=== PATIENT | female | born 1965 ===

== ENCOUNTER 2017-01-23 14:49 | Emergency (ER) | payer BC, OTHER ==
[2017-01-23 15:13] VITALS: BP 124/80
--- NOTE | 2017-01-23 15:31 | UC ---
Skin Complaint HPI - HPI Summary HPI Summary: 51 yo female with a few day hx of pruritic rash below bra strap also has generalized pruritis has had 2 days of diarrhea 4x today was at [facility] - History of Current Complaint Chief Complaint: UCSkin Time Seen by Provider: 01/23/17 15:21 Stated Complaint: POSSIBLE SHINGLES? Hx Obtained From: Patient Hx Last Menstrual Period: take B/C continuously to prevent menses Onset/Duration: Gradual Onset, Lasting Days Timing: Constant Onset Severity: Mild Current Severity: Mild Pain Intensity: 0 Pain Scale Used: 0-10 Numeric Location: Other - slightly left of t-10 Character: Swelling, Pruritus, Redness, Raised Aggravating: Nothing Alleviating: Nothing Associated Signs & Symptoms: Positive: Rash - Allergy/Home Medications Allergies/Adverse Reactions: Allergies Allergy/AdvReac Type Severity Reaction Status Date / Time Sulfa Antibiotics Allergy Rash Verified 01/23/17 15:14 Erythromycin AdvReac Vomiting Verified 01/23/17 15:14 Home Medications: Home Medications Albuterol HFA INHALER* [Ventolin HFA Inhaler*] 2 puff INH Q6H 01/23/17 [History Confirmed 01/23/17] Aspirin [Aspirin 81 MG TAB] 81 mg PO DAILY 01/23/17 [History Confirmed 01/23/17] Azelastine 0.15% NASAL(NF) [Astepro 0.15% NASAL (NF)] 2 spray NASAL BID [History Confirmed 01/23/17] Calcium 500 mg PO DAILY 01/23/17 [History Confirmed 01/23/17] Cevimeline HCl 30 mg PO DAILY 01/23/17 [History Confirmed 01/23/17] Clobetasol 0.05% OINT* 1 applic TOPICAL BID 01/23/17 [History Confirmed 01/23/17 ] Cyclosporine 0.05% OPHTH (NF) [Restasis 0.05% OPHTH] 1 drop BOTH EYES DAILY [History Confirmed 01/23/17] FLUoxetine CAP* [Prozac CAP*] 10 mg PO DAILY 01/23/17 [History Confirmed ] Folic Acid TAB* [Folvite TAB*] 1 mg PO SEE INSTRUCTIONS 01/23/17 [History Confirmed 01/23/17] Hydrochlorothiazide TAB* [Hydrodiuril TAB*] 12.5 mg PO DAILY 01/23/17 [History Confirmed 01/23/17] Hydroxychloroquine TAB* [Plaquenil TAB*] 400 mg PO DAILY 01/23/17 [History Confirmed 01/23/17] Hydroxypropyl Cellulose 1 pow XX DAILY 01/23/17 [History Confirmed 01/23/17] Irbesartan 75 mg PO DAILY 01/23/17 [History Confirmed 01/23/17] Methotrexate* 0.5 mg SUBCUT WEEKLY 01/23/17 [History Confirmed 01/23/17] Multiple Vitamins W/ Minerals [Multivitamin Adults] 1 tab PO DAILY 01/23/17 [ History Confirmed 01/23/17] Norethindrone Acet & Eth Estra [Microgestin 1.5/30 1.5-30 mg-Mcg] 1 tab PO DAILY 01/23/17 [History Confirmed 01/23/17] Omeprazole CAP* [Prilosec CAP* 20 MG] 40 mg PO DAILY 01/23/17 [History Confirmed 01/23/17] Pazeo 1 drop BOTH EYES DAILY 01/23/17 [History] Prednisolone [Millipred] 7 mg PO DAILY 01/23/17 [History Confirmed 01/23/17] traZODone TAB* [Desyrel TAB*] 50 mg PO BEDTIME 01/23/17 [History Confirmed 01/23] Review of Systems Constitutional: Negative Skin: Rash Eyes: Negative ENT: Negative Respiratory: Negative Cardiovascular: Negative Gastrointestinal: Diarrhea Genitourinary: Negative Motor: Negative Neurovascular: Negative Musculoskeletal: Negative Neurological: Negative Psychological: Negative, Anxious All Other Systems Reviewed And Are Negative: Yes PMH/Surg Hx/FS Hx/Imm Hx Previously Healthy: Yes - RA - Surgical History Surgical History: None - Family History Known Family History: Positive: Hypertension, Other - RA, lupus - Social History Alcohol Use: Daily Alcohol Amount: 1-2 glasses of wine Substance Use Type: None Smoking Status (MU): Never Smoked Tobacco Physical Exam Triage Information Reviewed: Yes Appearance: Well-Appearing, No Pain Distress, Well-Nourished Vital Signs: Initial Vital Signs Temp 98.6 F 01/23/17 15:05 Pulse 79 01/23/17 15:05 Resp 16 01/23/17 15:05 BP 124/80 01/23/17 15:05 Pulse Ox 100 01/23/17 15:05 Eye Exam: Normal Eyes: Positive: Conjunctiva Clear ENT: Positive: Hearing grossly normal. Negative: Nasal congestion, Nasal drainage, Tonsillar exudate, Trismus, Muffled/hoarse voice Neck: Positive: Supple, Nontender, No Lymphadenopathy Respiratory: Positive: Lungs clear, Normal breath sounds, No respiratory distress, No accessory muscle use Cardiovascular: Positive: RRR, No Murmur Abdomen Description: Positive: No Organomegaly, Soft. Negative: CVA Tenderness (R), CVA Tenderness (L) Bowel Sounds: Positive: Present Neurological: Positive: Alert Skin Exam: Normal Course/Dx - Diagnoses Provider Diagnoses: rash of uncertain cause, ? shingles. diarrhea Discharge - Discharge Plan Condition: Stable Disposition: HOME Prescriptions: Famciclovir(NF) [Famvir(NF)] 500 mg PO TID #21 tab hydrOXYzine HCL TAB* [Atarax 25 MG TAB*] 25 mg PO QID PRN #20 tab PRN Reason: Itching Patient Education Materials: Shingles (ED), Acute Diarrhea (ED), Acute Rash (ED ) Additional Instructions: Your rash may be shingles test for that is pending but I suggest you take Famvir recheck for new or worsening symptoms bring in stool for studies see your MD when you get home if not better Images Front/Back of Body, Lg (Hopkins): 1 - quarter sized area of vesicular lesions
[2017-01-25 18:44] LABS: Varicella Zoster Result Negative (Negative); Varicella Zoster Source BACK
== END 2017-01-23 16:05 | disposition home or self-care (01) ==
LOC: UCCORT 14:49
DX: R21 Rash and other nonspecific skin eruption (principal); A08.8 Other specified intestinal infections
CPT/HCPCS: 87798; 99202; G0463